=== PATIENT | male | born 1960 ===

== ENCOUNTER → 2018-11-05 19:17 | Outpatient (REF) | payer OTHER, MEDICAID, SELFPAY ==
[2018-11-05 20:18] LABS: Add Manual Diff / Slide Review NO; Alanine Aminotransferase 34 IU/L (21-72); Albumin 4.7 g/dL (3.5-5.0); Albumin Globulin Ratio 1.5 (1.0-2.8); Alkaline Phosphatase 61 U/L (38-126); Aspartate Aminotransferase 22 IU/L (17-59); BUN Creatinine Ratio 17.3 (6-22); Basophils Absolute Auto 100 /uL (0-100); Basophils Percent Auto 0.8 % (0-2); Bilirubin Total 0.8 mg/dL (0.2-1.3); Blood Urea Nitrogen 19 mg/dL (9-20); Calcium 9.7 mg/dL (8.4-10.2); Carbon Dioxide 28 mmol/L (22-32); Chloride 96 mmol/L (98-107); Eosinophils Absolute Auto 200 /uL (0-450); Eosinophils Percent Auto 2.1 % (2-4); Estimated Glomerular Filt Rate > 60.0 mL/min (>60); Globulin 3.2 g/dL (1.7-4.1); Glucose 113 mg/dL (80-110); HEMOLYSIS < 15 (0-50); Hematocrit 45.8 % (41-53); Hemoglobin 15.5 g/dL (13.5-17.5); Lipase 171 U/L (23-300); Lymphocytes Absolute Auto 2200 /uL (1100-4500); Lymphocytes Percent Auto 23.2 % (25-40); Mean Corpuscular HGB Conc 33.8 % (30-36); Mean Corpuscular Volume 94.6 fL (80-100); Monocytes Absolute Auto 900 /uL (0-900); Monocytes Percent Auto 9.8 % (3-14); Neutrophils Absolute Auto 6100 /uL (1500-7000); Neutrophils Percent Auto 64.1 % (50-75); Platelet Count 305 X10^3/uL (150-400); Potassium 4.1 mmol/L (3.4-5.1); Red Blood Cell Count 4.84 X10^6/uL (4.5-5.9); Red Cell Distribution Width 12.9 % (11.6-14.8); Sodium 135 mmol/L (137-145); Total Protein 7.9 g/dL (6.3-8.2); White Blood Cell Count 9.5 X10^3/uL (4.5-11.0)
[2018-11-06 08:28] LABS: Amylase 71 U/L (30-110)
== END ==
LOC: LAB 19:17
PROVIDERS: Visit Provider Family Medicine Geriatric Medicine
DX: R10.9 Unspecified abdominal pain (principal); K92.0 Hematemesis; F10.188 Alcohol abuse with other alcohol-induced disorder
CPT/HCPCS: 36415; 80053; 82150; 83690; 85025